=== PATIENT | male | born 1955 | race Asian ===

== ENCOUNTER 2016-11-28 12:53 | Outpatient (CLI) | payer BC, OTHER | END 2016-11-28 14:00 | disposition home or self-care (01) | LOC: LABW 12:53 | PROVIDERS: Internal Medicine | DX: Z00.00 Encounter for general adult medical examination without abnormal findings (principal); I10 Essential (primary) hypertension; K21.9 Gastro-esophageal reflux disease without esophagitis; N40.0 Benign prostatic hyperplasia without lower urinary tract symptoms | CPT/HCPCS: 36415; 80061 ==

== ENCOUNTER 2017-12-08 07:35 | Outpatient (CLI) | payer BC, OTHER ==
[2017-12-08 08:21] LABS: PLATELET COUNT 196 K/uL (142-355)
[2017-12-08 08:44] LABS: POTASSIUM 3.5 mmol/L (3.6-5.2)
== END 2017-12-08 22:26 | disposition home or self-care (01) ==
LOC: LABW 07:35
PROVIDERS: Internal Medicine
DX: Z00.00 Encounter for general adult medical examination without abnormal findings (principal); I10 Essential (primary) hypertension; E66.8 Other obesity; K21.9 Gastro-esophageal reflux disease without esophagitis; N40.0 Benign prostatic hyperplasia without lower urinary tract symptoms; E78.1 Pure hyperglyceridemia
CPT/HCPCS: 36415; 80053; 80061; 81000; 84153; 84443; 85027

== ENCOUNTER 2018-01-03 10:07 | Outpatient (CLI) | payer BC, OTHER ==
[2018-01-03 10:33] LABS: POTASSIUM 3.5 mmol/L (3.6-5.2)
== END 2018-01-03 23:59 | disposition home or self-care (01) ==
LOC: LABW 10:07
PROVIDERS: Nurse Practitioner Family
DX: M10.072 Idiopathic gout, left ankle and foot (principal); I10 Essential (primary) hypertension
CPT/HCPCS: 36415; 80053; 84550

== ENCOUNTER 2018-07-10 09:25 | Outpatient (CLI) | payer BC, OTHER ==
[2018-07-10 09:55] LABS: PLATELET COUNT 190 K/uL (142-355)
[2018-07-10 10:04] LABS: POTASSIUM 3.9 mmol/L (3.6-5.2)
== END 2018-07-10 23:13 | disposition home or self-care (01) ==
LOC: LABW 09:25
PROVIDERS: Nurse Practitioner Family
DX: Z00.00 Encounter for general adult medical examination without abnormal findings (principal); M10.072 Idiopathic gout, left ankle and foot; I10 Essential (primary) hypertension; E66.9 Obesity, unspecified; C67.9 Malignant neoplasm of bladder, unspecified; Z71.3 Dietary counseling and surveillance
CPT/HCPCS: 36415; 80053; 80061; 81000; 84443; 84550; 85027

== ENCOUNTER 2019-01-17 05:48 | Outpatient (CLI) | payer BC, OTHER ==
[2019-01-17 06:33] LABS: PLATELET COUNT 208 K/uL (142-355); POTASSIUM 3.4 mmol/L (3.6-5.2)
== END 2019-01-17 22:29 | disposition home or self-care (01) ==
LOC: LABW 05:48
PROVIDERS: Nurse Practitioner Family
DX: I10 Essential (primary) hypertension (principal); C67.9 Malignant neoplasm of bladder, unspecified; N40.0 Benign prostatic hyperplasia without lower urinary tract symptoms; M10.9 Gout, unspecified; E78.1 Pure hyperglyceridemia; Z12.5 Encounter for screening for malignant neoplasm of prostate
CPT/HCPCS: 36415; 80053; 80061; 81000; 84153; 84443; 85027

== ENCOUNTER 2019-03-06 05:43 | Outpatient (CLI) | payer BC, OTHER | END 2019-03-06 19:01 | disposition home or self-care (01) | LOC: LABW 05:43 | DX: R79.89 Other specified abnormal findings of blood chemistry (principal) | CPT/HCPCS: 36415; 84403 ==

== ENCOUNTER 2019-08-29 08:07 | Outpatient (CLI) | payer BC, OTHER ==
[2019-08-29 08:42] LABS: PLATELET COUNT 159 K/uL (142-355)
[2019-08-29 08:45] LABS: POTASSIUM 3.6 mmol/L (3.6-5.2)
== END 2019-08-29 21:57 | disposition home or self-care (01) ==
LOC: LABW 08:07
PROVIDERS: Internal Medicine
DX: Z00.00 Encounter for general adult medical examination without abnormal findings (principal); Z71.3 Dietary counseling and surveillance; I10 Essential (primary) hypertension; K21.9 Gastro-esophageal reflux disease without esophagitis; N40.0 Benign prostatic hyperplasia without lower urinary tract symptoms; Z12.5 Encounter for screening for malignant neoplasm of prostate; G47.00 Insomnia, unspecified; F10.10 Alcohol abuse, uncomplicated; E03.9 Hypothyroidism, unspecified; D64.9 Anemia, unspecified; R68.82 Decreased libido
CPT/HCPCS: 36415; 80053; 80061; 81000; 84439; 84443; 84550; 85027

== ENCOUNTER 2019-10-30 12:10 | Outpatient (CLI) | payer BC, OTHER | END 2019-10-30 19:18 | disposition home or self-care (01) | LOC: RAD 12:10 | DX: R13.19 Other dysphagia (principal) ==

== ENCOUNTER 2020-03-03 15:23 | Outpatient (CLI) | payer BC, OTHER ==
[2020-03-03 16:00] LABS: PLATELET COUNT 186 K/uL (142-355)
[2020-03-03 16:21] LABS: POTASSIUM 3.5 mmol/L (3.6-5.2)
== END 2020-03-03 19:15 | disposition home or self-care (01) ==
LOC: LABW 15:23
PROVIDERS: Internal Medicine
DX: Z00.00 Encounter for general adult medical examination without abnormal findings (principal); Z71.3 Dietary counseling and surveillance; I10 Essential (primary) hypertension; K21.9 Gastro-esophageal reflux disease without esophagitis; N40.0 Benign prostatic hyperplasia without lower urinary tract symptoms; Z12.5 Encounter for screening for malignant neoplasm of prostate; G47.00 Insomnia, unspecified; F10.10 Alcohol abuse, uncomplicated; E03.9 Hypothyroidism, unspecified; D64.9 Anemia, unspecified; R68.82 Decreased libido
CPT/HCPCS: 36415; 80053; 80061; 81000; 84443; 84550; 85027

== ENCOUNTER 2020-07-29 08:10 | Outpatient (CLI) | payer BC, OTHER | END 2020-07-29 19:30 | disposition home or self-care (01) | LOC: INF 08:10 | PROVIDERS: ATTEND Internal Medicine | DX: Z23 Encounter for immunization (principal) | CPT/HCPCS: 96372 ==

== ENCOUNTER 2020-08-18 08:14 | Outpatient (CLI) | payer BC, OTHER | END 2020-08-18 19:51 | disposition home or self-care (01) | LOC: INF 08:14 | PROVIDERS: ATTEND Internal Medicine | DX: Z23 Encounter for immunization (principal) | CPT/HCPCS: 96372 ==

== ENCOUNTER 2022-10-18 17:07 | Outpatient (CLI) | payer BC, OTHER ==
[2022-10-18 17:22] LABS: PLATELET COUNT 199 K/uL (142-355)
[2022-10-18 17:41] LABS: POTASSIUM 4.2 mmol/L (3.6-5.2)
== END 2022-10-18 19:49 ==
LOC: LABW 17:07
PROVIDERS: ATTEND Urology
DX: Z01.818 Encounter for other preprocedural examination (principal)
CPT/HCPCS: 36415; 80053; 81002; 85027